=== PATIENT | male | born 2000 | race African-American/Black ===

== ENCOUNTER → 2018-08-13 01:39 | Emergency (ER) | payer SELFPAY ==
[~2018-08-13 01:39] MED LIST: Haloperidol INJ IV/IM* 5 MG/ML AMP ONE; LORazepam INJ* 2 MG/ML 1 ML VIAL ONE
[2018-08-13 03:24] LABS: ABS Basophils 0.1 10^3/ul (0-0.2); ABS Eosinophils 0.1 10^3/ul (0-0.6); ABS Lymphocytes 1.5 10^3/ul (1.0-4.8); ABS Monocytes 0.5 10^3/ul (0-0.8); ABS Neutrophils 3.1 10^3/ul (1.5-7.7); ABS Nucleated RBC 0 10^3/ul; Eosinophil % 2.1 %; Hematocrit 39 % (42-52); Hemoglobin 12.8 g/dl (14.0-18.0); Lymphocyte % 28.8 %; Mean Corpuscular HGB Conc 33 g/dl (31-36); Mean Corpuscular Hemoglobin 27 pg (27-31); Mean Corpuscular Volume 82 fL (80-94); Mean Platelet Volume 7.3 fL (7.4-10.4); Nucleated Red Blood Cells % 0.1; Platelet Count 267 10^3/ul (150-450); Red Blood Count 4.76 10^6/ul (4.00-5.40); Red Cell Distribution Width 14 % (10.5-15); White Blood Count 5.2 10^3/ul (3.5-10.8)
[2018-08-13 03:38] LABS: EGFR Non-African American 97.5 (>60)
--- NOTE | 2018-08-13 04:40 | ED ---
Substance Abuse/Use - HPI Summary HPI Summary: The patient is a 18 y/o M presenting to [facility] with a chief complaint of EtOH intoxication tonight. He was brought in by police after being found unconscious in the back seat of an Uber. Once picked up by police, the pt became violent with incoherent speech. He has an abrasion on his forehead on the right side. - History Of Current Complaint Chief Complaint: EDSubstanceAbuse Stated Complaint: 2208 Time Seen by Provider: 08/13/18 01:45 Hx Obtained From: Patient Onset/Duration of Drug/ETOH Abuse: Hours Ingestion History: Type/Name Of Drug - EtOH Timing Of Abuse: Intermittent Severity Initially: Moderate Severity Currently: Moderate Character: Angry Aggravating Factor(s): Nothing Alleviating Factor(s): Nothing Associated Signs And Symptoms: Hostile - Allergies/Home Medications Allergies/Adverse Reactions: Allergies Allergy/AdvReac Type Severity Reaction Status Date / Time No Known Allergies Allergy Verified 08/13/18 01:57 Home Medications: Home Medications NK [No Home Medications Reported] 08/13/18 [History Confirmed 08/13/18] PMH/Surg Hx/FS Hx/Imm Hx Endocrine/Hematology History: Denies: Hx Diabetes Sensory History: Denies: Hx Deafness Opthamlomology History: Denies: Hx Legally Blind EENT History: Denies: Hx Deafness - Surgical History Surgery Procedure, Year, and Place: none - Immunization History Immunizations Up to Date: Yes Infectious Disease History: No Infectious Disease History: Denies: Traveled Outside the [place] in Last 30 Days - Family History Known Family History: Negative: Blood Disorder - Social History Alcohol Use: Occasionally Substance Use Type: Reports: None Smoking Status (MU): Never Smoked Tobacco Review of Systems Positive: Other - abrasion over forehead on right side Positive: Other - intoxicated; abrasive All Other Systems Reviewed And Are Negative: Yes Physical Exam - Summary Physical Exam Summary: Appearance: Well appearing, no pain distress Skin: warm, dry, reflects adequate perfusion Head/face: abrasion over forehead on right side Eyes: EOMI, ALY ENT: normal Neck: supple, non-tender Respiratory: CTA, breath sounds present Cardiovascular: RRR, pulses symmetrical Abdomen: non-tender, soft Musculoskeletal: normal, strength/ROM intact Neuro: normal, sensory motor intact, alert and confused, GCS: 14 Triage Information Reviewed: Yes Vital Signs On Initial Exam: Initial Vitals Temp Pulse Resp BP Pulse Ox 97.8 F 94 20 176/82 98 08/13/18 01:40 08/13/18 01:40 08/13/18 01:40 08/13/18 01:40 08/13/18 01:40 Vital Signs Reviewed: Yes - Lamar Coma Scale Best Eye Response: 4 - Spontaneous Best Motor Response: 6 - Obeys Commands Best Verbal Response: 4 - Confused Coma Scale Total: 14 Diagnostics - Vital Signs Vital Signs Temp Pulse Resp BP Pulse Ox 08/13/18 02:02 112 82 08/13/18 01:46 176/82 08/13/18 01:40 97.8 F 94 20 176/82 98 - Laboratory Lab Results: Lab Results 08/13/18 08/13/18 Range/Units 03:16 03:16 WBC 5.2 (3.5-10.8) 10^3/ul RBC 4.76 (4.00-5.40) 10^6/ul Hgb 12.8 L (14.0-18.0) g/dl Hct 39 L (42-52) % MCV 82 (80-94) fL MCH 27 (27-31) pg MCHC 33 (31-36) g/dl RDW 14 (10.5-15) % Plt Count 267 (150-450) 10^3/ul MPV 7.3 L (7.4-10.4) fL Neut % (Auto) 59.1 % Lymph % (Auto) 28.8 % Valley % (Auto) 8.9 % Eos % (Auto) 2.1 % Baso % (Auto) 1.1 % Absolute Neuts (auto) 3.1 (1.5-7.7) 10^3/ul Absolute Lymphs (auto) 1.5 (1.0-4.8) 10^3/ul Absolute Monos (auto) 0.5 (0-0.8) 10^3/ul Absolute Eos (auto) 0.1 (0-0.6) 10^3/ul Absolute Basos (auto) 0.1 (0-0.2) 10^3/ul Absolute Nucleated RBC 0 10^3/ul Nucleated RBC % 0.1 Sodium 140 (135-145) mmol/L Potassium 3.6 (3.5-5.0) mmol/L Chloride 108 (101-111) mmol/L Carbon Dioxide 24 (22-32) mmol/L Anion Gap 8 (2-11) mmol/L BUN 17 (6-24) mg/dL Creatinine 0.98 (0.67-1.17) mg/dL Est GFR ( Amer) 118.0 (>60) Est GFR (Non-Af Amer) 97.5 (>60) BUN/Creatinine Ratio 17.3 (8-20) Glucose 108 H (70-100) mg/dL Calcium 8.5 L (8.6-10.3) mg/dL Total Bilirubin 0.20 (0.2-1.0) mg/dL AST 19 (13-39) U/L ALT 14 (7-52) U/L Alkaline Phosphatase 72 (34-104) U/L Total Protein 6.2 L (6.4-8.9) g/dL Albumin 4.0 (3.2-5.2) g/dL Globulin 2.2 (2-4) g/dL Albumin/Globulin Ratio 1.8 (1-3) Serum Alcohol 339 H (<10) mg/dL Result Diagrams: 08/13/18 03:16 08/13/18 03:16 Lab Statement: Any lab studies that have been ordered have been reviewed, and results considered in the medical decision making process. - CT Brain CT CT Interpretation Completed By: Radiologist Summary of CT Findings: FINDINGS: Brain: Normal. No hemorrhage. No significant white matter disease. No edema. Ventricles: Normal. No ventriculomegaly. Bones /joints: Normal. No acute fracture. Sinuses: There is a cyst or polyp in the frontal sinus. Mastoid air cells: Normal as visualized. No mastoid effusion. Soft tissues: Normal. IMPRESSION: No acute intracranial pathology. ED physician has reviewed this report. Course/Dx - Course Course Of Treatment: The patient is a 18 y/o M presenting to [facility] with a chief complaint of EtOH intoxication tonight after being brought in by police after he was found unconscious in the back of an Uber car. Upon exam, the patient has an abrasion on his right forehead. In the ED course, the patient was sedated with Benedryl, Haldol, and Ativan. At time of arrival, pt was placed in restraints for violence at 01:00 and removed from restraints at 02:00. Bloodwork obtained. Brain CT is negative. Patient is diagnosed with alcohol intoxication. Patient is a sign-out to Dr. Neo Galvan MD, at change of shift at [0700] pending EtOH withdrawal and disposition. - Diagnoses Differential Diagnosis/HQI/PQRI: Positive: Alcohol Abuse Provider Diagnoses: Alcohol intoxication Discharge - Sign-Out/Discharge Documenting (check all that apply): Patient Departure - Patient will be discharged home. , Sign-Out Patient Signing out patient TO: Neo Galvan - Patient is a sign-out to Dr. Neo Galvan MD, at change of shift at [0700] pending EtOH withdrawal and disposition. - Discharge Plan Condition: Stable Disposition: HOME Patient Education Materials: Alcohol Intoxication (ED), Moderate Sedation (ED) Referrals: [facility] [place] PHYSICIAN REFERRAL [Outside] Additional Instructions: Follow up with your primary care provider in 2-3 days. Return to the emergency department for any new or worsening symptoms. - Billing Disposition and Condition Condition: STABLE Disposition: Home - Attestation Statements Document Initiated by Richardibe: Yes Documenting Scribe: Loni Quinn Provider For Whom Angie is Documenting (Include Credential): Dr. Joby Butcher MD Scribe Attestation: Loni Gupta scribed for Dr. Joby Butcher MD on 08/13/18 at 0617. Scribe Documentation Reviewed: Yes Provider Attestation: The documentation as recorded by the Loni mendez accurately reflects the service I personally performed and the decisions made by me, Dr. Joby Butcher MD Status of Scribe Document: Viewed
--- NOTE | 2018-08-13 07:32 | ED ---
Progress - Progress Note Progress Note: 0725 - Patient was evaluated in the room. He is asleep at this time. Pupils reactive to light. Vitals are stable with pulse 82, 100 o2 sat, and BP 114/58. 1147 - Patient had awoken at this point. He is alert and oriented x3 with normal cognition and ambulation. Patient is sober. He was discharged to home. Course/Dx - Course Course Of Treatment: 0725 - Patient was evaluated in the room. He is asleep at this time. Pupils reactive to light. Vitals are stable with pulse 82, 100 o2 sat , and BP 114/58. This patient will be signed out to Dr. Butcher. The patient is with alcohol intoxication. At this time the patient is sleeping comfortable. At approximately 12 PM the patient is alert and oriented, the patient is sober, he he has normal cognition. The patient is eating and drinking without any discomfort. Patient is hemodynamically stable alert and oriented 3 and he is ambulating without any difficulty. Therefore the patient was discharged home with follow-up with PCP. - Diagnoses Provider Diagnoses: Alcohol intoxication Discharge - Sign-Out/Discharge Documenting (check all that apply): Patient Departure - discharge - Discharge Plan Condition: Stable Disposition: HOME Patient Education Materials: Alcohol Intoxication (ED), Moderate Sedation (ED) [place]errals: [facility] [place] [Outside] Additional Instructions: Follow up with your primary care provider in 2-3 days. Return to the emergency department for any new or worsening symptoms. - Billing Disposition and Condition Condition: STABLE Disposition: Home - Attestation Statements Document Initiated by Angie: Yes Documenting Scribe: MATEUS GONZALEZ Provider For Whom Angie is Documenting (Include Credential): PRAVIN RINCON MD Scribe Attestation: MATEUS Gupta , scribed for PRAVIN RINCON MD on 08/13/18 at 1833. Scribe Documentation Reviewed: Yes Provider Attestation: The documentation as recorded by the MATEUS mendez accurately reflects the service I personally performed and the decisions made by , PRAVIN RINCON MD Status of Scribe Document: Viewed
[2018-08-13 11:19] VITALS: BP 139/77
== END | disposition home or self-care (01) ==
LOC: ED 01:39
DX: F10.129 Alcohol abuse with intoxication, unspecified (principal); S00.81XA Abrasion of other part of head, initial encounter; X58.XXXA Exposure to other specified factors, initial encounter; Y92.9 Unspecified place or not applicable; Y90.8 Blood alcohol level of 240 mg/100 ml or more
CPT/HCPCS: 36415; 70450; 80053; 80320; 85025; 96374; 96375; 96376; 99285; G0480; J1630; J2060